=== PATIENT | female | born 1990 | race Caucasian/White ===

== ENCOUNTER 2017-06-02 08:06 | Inpatient (IN) | payer BC ==
[2017-06-02] VITALS (9 sets, daily range): BP systolic 98–138; BP diastolic 54–75
[~2017-06-02] VITALS: Ht 167.6 cm; Wt 94.0 kg
[~2017-06-02 08:06] MED LIST: ALLERGY MED OTC; BIRTH CONTROL PO; CRANBERRY; KEPPRA; NOHOMEMEDS; PRENATAL TABLE1 EAC3 PO
[2017-06-02] MEDS ORDERED: IBUPROFEN800 MG PO (12:19)
[2017-06-02] MEDS ORDERED: ENDOCET 5-3251 EACH PO (12:19)
[2017-06-03] VITALS (8 sets, daily range): BP systolic 86–113; BP diastolic 50–58
[2017-06-03 05:46] LABS: EOSINOPHIL (%) 0.1 % (0-5); HEMATOCRIT 22.6 % (36.0-46.0); IMMATURE GRANULOCYTE (%) 0.6 % (0.0-0.7); IMMATURE GRANULOCYTE COUNT 0.1 K/uL; INSTRUMENT ABS NEUTROPHIL CT 11.6 K/uL; LYMPHOCYTE COUNT 2.4 K/uL (1.0-2.8); MCH 24.5 PG (29.0-34.0); MEAN PLAT.VOLUME 11.8 uM^3 (9.5-12.4); MONOCYTE (%) 9.1 % (3-12); MONOCYTE COUNT 1.4 K/uL (0-0.8); NEUTROPHIL (%) 74.6 % (45-76); NEUTROPHIL COUNT 11.6 K/uL (1.8-6.4); PLATELET COUNT 143 K/uL (156-360); RBC DIS.WIDTH-CV 15.5 % (11.8-14.6); RBC DIS.WIDTH-SD 44.1 % (39-53); WHITE BLOOD COUNT 15.5 K/uL (4.1-10.2)
[2017-06-03 05:47] LABS: RED BLOOD COUNT 2.86 M/uL (3.80-5.20)
[2017-06-04 02:38] VITALS: BP 101/51
[2017-06-04 06:00] LABS: EOSINOPHIL (%) 0.8 % (0-5); EOSINOPHIL COUNT 0.1 K/uL (0-0.3); HEMATOCRIT 23.6 % (36.0-46.0); IMMATURE GRANULOCYTE (%) 0.7 % (0.0-0.7); IMMATURE GRANULOCYTE COUNT 0.1 K/uL; INSTRUMENT ABS NEUTROPHIL CT 5.7 K/uL; LYMPHOCYTE COUNT 2.8 K/uL (1.0-2.8); MCH 24.5 PG (29.0-34.0); MCHC 30.5 G/DL (30.0-36.0); MCV 80.3 FL (83-99); MONOCYTE (%) 8.2 % (3-12); MONOCYTE COUNT 0.8 K/uL (0-0.8); NEUTROPHIL (%) 60.9 % (45-76); NEUTROPHIL COUNT 5.7 K/uL (1.8-6.4); PLATELET COUNT 157 K/uL (156-360); RBC DIS.WIDTH-CV 15.9 % (11.8-14.6); RBC DIS.WIDTH-SD 45.9 % (39-53); RED BLOOD COUNT 2.94 M/uL (3.80-5.20); WHITE BLOOD COUNT 9.4 K/uL (4.1-10.2)
[2017-06-04 07:41] VITALS: BP 96/55
[2017-06-04 11:25] VITALS: BP 109/55
[2017-06-04 15:21] VITALS: BP 120/67
[2017-06-04 19:48] VITALS: BP 120/58
[2017-06-04 23:00] VITALS: BP 106/58
[2017-06-05 08:17] VITALS: BP 116/58
[2017-06-05 15:00] VITALS: BP 118/64
[2017-06-06 07:25] VITALS: BP 109/63
== END 2017-06-06 14:55 | disposition home or self-care (01) | DRG 765 ==
LOC: 2SOUTH → 2WEST 08:06 → 2SOUTH 12:23 → 2WEST 06-06 14:55
PROVIDERS: Obstetrics & Gynecology; Obstetrics & Gynecology Gynecology
PROC: 10D00Z1 Extraction of Products of Conception, Low, Open Approach (ICD-10-PCS; principal; 2017-06-02)
DX: O75.3 Other infection during labor (principal); O32.1XX0 Maternal care for breech presentation, not applicable or unspecified; O99.824 Streptococcus B carrier state complicating childbirth; M41.9 Scoliosis, unspecified; O98.52 Other viral diseases complicating childbirth; E28.2 Polycystic ovarian syndrome; Z87.442 Personal history of urinary calculi; Z88.0 Allergy status to penicillin; B00.2 Herpesviral gingivostomatitis and pharyngotonsillitis; Z37.0 Single live birth; Z3A.39 39 weeks gestation of pregnancy
CPT/HCPCS: 36415; 82247; 85025; 86850; 86900; 86901; J1100; J1170; J1580; J2175; J2274; J2405; J2765; J3010; J7050; J7120